=== PATIENT | female | born 1995 | race Caucasian/White ===

== ENCOUNTER 2016-08-02 16:38 | Emergency (ER) | payer BC ==
[~2016-08-02] VITALS: Ht 147.3 cm; Wt 57.8 kg
[2016-08-02 16:43] VITALS: TEMP 36.7; Ht 147.3 cm; Wt 57.8 kg
[2016-08-02] MEDS ORDERED: BCPILLS PO (19:22)
[2016-08-02 19:26] LABS: BASO % 0.5 %; BASO ABS # 0.05 K/uL (0-0.2); COMPLETE YES; EOS % 0.6 %; IG% 0.4 %; LYMPH % 32.5 %; LYMPH ABS # 3.26 K/uL (1.2-3.4); MEAN CORPUSCULAR HEMOGLOBIN 30.1 pg (25-34); MEAN CORPUSCULAR HGB CONC 34.6 g/dl (32-36); MEAN PLATELET VOLUME 9.6 fL (7.4-10.4); PLATELET COUNT 355 K/uL (130-400); RED BLOOD COUNT 4.71 M/uL (4.2-5.4); WHITE BLOOD COUNT 10.02 K/uL (4.8-10.8)
--- NOTE | 2016-08-02 19:39 | DIAGNOSTIC IMAGING REPORT ---
CHEST 2 VIEWS ROUTINE CLINICAL HISTORY: Atypical chest pain COMPARISON STUDY: No previous studies for comparison. FINDINGS: The cardiac and mediastinal contours are normal. There is no evidence of focal pulmonary consolidation. There is no evidence of failure. No pleural effusions are visualized.[ IMPRESSION: No active disease in the chest. Electronically signed by: Anthony Nguyen M.D. 08/02/2016 7:37 PM Dictated Date/Time: 08/02/2016 7:37 PM
[2016-08-02 19:49] LABS: BUN/CREATININE RATIO 15.5 (10-20); CALCIUM 9.5 mg/dl (8.5-10.1); CREATININE 0.66 mg/dl (0.60-1.20); POTASSIUM 4.1 mmol/L (3.5-5.1)
[2016-08-02 19:52] LABS: ALB/GLOB RATIO 0.9 (0.9-2)
[2016-08-02 21:03] VITALS: BP 122/73; PULSE 70; O2SAT 98
[2016-08-02] MEDS ORDERED: VNTHFA/IN INH (21:09)
--- NOTE | 2016-08-02 21:09 | EMERGENCY ROOM VISIT NOTE ---
History First contact with patient: 18:48 Chief Complaint: CHEST PAIN Stated Complaint: PAINS IN CHEST/BACK - SHORTNESS OF BREATH Nursing Triage Summary: Pt c/o difficulty breathing on and off x 3 weeks, more SOB walking to class and going upstairs, getting pain in upper left chest and shoulder into back when she gets SOB. Pt states hx anxiety but this does not feel the same. History of Present Illness The patient is a 20 year old female who presents to the Emergency Room with complaints of chest pain and shortness of breath. The patient states that over the past 3 weeks, she has had intermittent shortness of breath. She reports this typically happens when she is walking to class or walking upstairs. She also has occasional pains in her left upper chest which radiate into the shoulder. She states that she has had a cough on and off for the past few months. She was diagnosed with influenza one month ago but states the cough has been persistent. The patient does report a history of exercise-induced asthma, but states that she is not using an inhaler because she does not have prescription for one with her. She does take control pills. She is not a smoker. She denies any personal or family history of blood clots or bleeding/ clotting disorders. She denies any recent travel. The patient reports that she does have a history of anxiety and is unsure if that is the cause of the pain. She was seen at [facility] today and sent here for further evaluation. The patient denies any fevers/chills, abdominal pain, nausea or vomiting. Review of Systems A complete 10-point Review of Systems was discussed with the patient, with pertinent positives and negatives listed in the History of Present Illness. All remaining Review of Systems questions can be considered negative unless otherwise specified. Social History Smoking Status: Never Smoker Current/Historical Medications Scheduled Albuterol Hfa (Ventolin Hfa), 2 PUFFS INH QID Control Pills ( Control Pills), 1 TAB PO DAILY Allergies Coded Allergies: No Known Allergies (Unverified , 08/02/16) Physical Exam Vital Signs Date Time Temp Pulse Resp B/P Pulse Ox O2 Delivery O2 Flow Rate FiO2 08/02/16 21:03 70 16 122/73 98 Room Air 08/02/16 19:10 83 08/02/16 19:04 106 16 135/76 98 Room Air 08/02/16 16:43 36.7 95 17 138/65 98 Room Air Physical Exam VITALS: Vitals are noted on the nurse's note and reviewed by myself. Vital signs stable. GENERAL: This is a 20-year-old female, in no acute distress, nondiaphoretic, well-developed well-nourished. SKIN: Capillary reflex less than 2 seconds. HEENT: Normocephalic. PERRLA. EOMI. Nares patent. Mucous membranes moist. Neck is supple without nuchal rigidity. HEART: Regular rate and rhythm without murmurs gallops or rubs. LUNGS: Clear to auscultation bilaterally without wheezes, rales or rhonchi. No retractions or accessory muscle use. MUSCULOSKELETAL: No reproducible chest wall tenderness. NEURO: Patient was alert and oriented to person place and time. Medical Decision & Procedures ER Provider Diagnostic Interpretation: CHEST 2 VIEWS ROUTINE CLINICAL HISTORY: Atypical chest pain COMPARISON STUDY: No previous studies for comparison. FINDINGS: The cardiac and mediastinal contours are normal. There is no evidence of focal pulmonary consolidation. There is no evidence of failure. No pleural effusions are visualized.[ IMPRESSION: No active disease in the chest. Laboratory Results 08/02/16 19:13 Red Blood Count 4.71, Mean Corpuscular Volume 87.0, Mean Corpuscular Hemoglobin 30.1, Mean Corpuscular Hemoglobin Concent 34.6, Mean Platelet Volume 9.6, Neutrophils (%) (Auto) 59.0, Lymphocytes (%) (Auto) 32.5, Monocytes (%) (Auto) 7.0, Eosinophils (%) (Auto) 0.6, Basophils (%) (Auto) 0.5, Neutrophils # (Auto) 5.91, Lymphocytes # (Auto) 3.26, Monocytes # (Auto) 0.70, Eosinophils # (Auto) 0.06, Basophils # (Auto) 0.05 08/02/16 19:13 Test 08/02/16 19:13 08/02/16 19:16 White Blood Count 10.02 K/uL (4.8-10.8) Red Blood Count 4.71 M/uL (4.2-5.4) Hemoglobin 14.2 g/dL (12.0-16.0) Hematocrit 41.0 % (37-47) Mean Corpuscular Volume 87.0 fL (80-100) Mean Corpuscular Hemoglobin 30.1 pg (25-34) Mean Corpuscular Hemoglobin Concent 34.6 g/dl (32-36) Platelet Count 355 K/uL (130-400) Mean Platelet Volume 9.6 fL (7.4-10.4) Neutrophils (%) (Auto) 59.0 % Lymphocytes (%) (Auto) 32.5 % Monocytes (%) (Auto) 7.0 % Eosinophils (%) (Auto) 0.6 % Basophils (%) (Auto) 0.5 % Neutrophils # (Auto) 5.91 K/uL (1.4-6.5) Lymphocytes # (Auto) 3.26 K/uL (1.2-3.4) Monocytes # (Auto) 0.70 K/uL (0.11-0.59) Eosinophils # (Auto) 0.06 K/uL (0-0.5) Basophils # (Auto) 0.05 K/uL (0-0.2) RDW Standard Deviation 41.4 fL (36.4-46.3) RDW Coefficient of Variation 12.8 % (11.5-14.5) Immature Granulocyte % (Auto) 0.4 % Immature Granulocyte # (Auto) 0.04 K/uL (0.00-0.02) D-Dimer 300 ug/L FEU (0-500) Urine Test NEG (NEG) Anion Gap 9.0 mmol/L (3-11) Est Creatinine Clear Calc Drug Dose 102.3 ml/min Estimated GFR () 147.4 Estimated GFR (Non- 127.2 BUN/Creatinine Ratio 15.5 (10-20) Calcium Level 9.5 mg/dl (8.5-10.1) Total Bilirubin 0.3 mg/dl (0.2-1) Aspartate Amino Transf (AST/SGOT) 18 U/L (15-37) Alanine Aminotransferase (ALT/SGPT) 23 U/L (12-78) Alkaline Phosphatase 43 U/L (45-117) Total Protein 8.2 gm/dl (6.4-8.2) Albumin 3.9 gm/dl (3.4-5.0) Globulin 4.3 gm/dl (2.5-4.0) Albumin/Globulin Ratio 0.9 (0.9-2) Bedside Troponin I 0.000 ng/ml (0-0.045) ECG Rate (beats per minute): 85 Rhythm: normal sinus Findings: no acute ischemic change, no ectopy Comparison ECG Date: no prior available Medical Decision Differential diagnosis includes acute coronary syndrome, pulmonary embolism, pneumothorax, pericarditis, myocarditis, endocarditis, anxiety, musculoskeletal pain, GERD, costochondritis, pneumonia, among others. The patient was evaluated as above. Labs were drawn and IV access was obtained. Imaging studies were performed and read by radiology as above. The patient was reassessed multiple times during their stay in the emergency department and remained in stable condition. The patient is a 20-year-old female who presents today complaining of intermittent shortness of breath for the past several weeks. Labs revealed no leukocytosis, anemia or concerning electrolyte abnormalities. EKG showed a normal sinus rhythm without acute changes. Troponin was not elevated. D-dimer was not elevated. Given the duration of patient's symptoms, negative d-dimer and low risk for pulmonary embolism, I did not feel that any further workup was needed. The patient does have a history of exercise-induced asthma and this may be related to that. She was carrying a prescription for albuterol inhaler and instructed to follow-up with [facility] for further evaluation of her symptoms. Based on the patient's presentation, lab results, and imaging studies, I feel the patient is stable for outpatient treatment. The patient's case was reviewed with Dr. Ho, ED attending physician, who agreed with my assessment and treatment plan. Discharge instructions were reviewed with the patient. The patient verbalized understanding of my assessment and treatment plan and was discharged home in good condition. Impression Primary Impression: Shortness of breath Departure Information Dispostion Home / Self-Care Condition GOOD Prescriptions Albuterol Hfa (VENTOLIN HFA) 200 Puffs/42575 Mcg Aers 2 PUFFS INH QID, #1 INHALER Prov: Enedina Ang, GLENYS 08/02/16 Referrals No Doctor, Assigned (PCP) Patient Instructions [facility] Additional Instructions You have been treated in the Emergency Department for your Non-Cardiac Chest Pain. Laboratory results and Imaging Studies have ruled out any cardiac or pulmonary cause of your chest pain. Use your inhaler as needed for shortness of breath. For pain control, you can use the following [id number] medicines (if >12 yo): - Regular strength (325mg/tab) Tylenol (acetaminophen) 2 tabs every 4-6 hours as needed. Do not exceed 12 tablets in a 24 hour period. Avoid taking more than 4 grams (4000 mg) of Tylenol per day. This includes any other sources of acetaminophen you may take on a regular basis. - Regular strength (200 mg/tab) Advil (ibuprofen) 1-2 tabs every 4-6 hours as needed. Do not exceed a dose of 3200 mg per day. You should schedule a follow-up appointment with your Primary Care Provider in 2 -3 days for further evaluation from today's Emergency Department visit. Return to the Emergency Department if your current symptoms worsen despite treatment course outlined above, or if you develop any of the following symptoms : worsening chest pain, associated jaw/arm pain, nausea, dizziness, shortness of breath, bloody cough, or fainting.
[2016-08-02] MEDS ORDERED: ALBUTEROL HFA 8 GM INHALER INH ONE (21:15)
== END 2016-08-02 21:25 | disposition home or self-care (01) ==
LOC: C.EDB 16:42 → C.EDC 21:25
DX: R06.02 Shortness of breath (principal)